=== PATIENT | female | born 1970 | race Hispanic/Latino ===

== ENCOUNTER 2018-02-03 11:10 | Outpatient (CLI) | payer OTHER | END 2018-02-03 11:11 | disposition home or self-care (01) | LOC: BICMAMMO 11:10 | PROVIDERS: ATTEND Family Medicine | DX: Z12.31 Encounter for screening mammogram for malignant neoplasm of breast (principal) | CPT/HCPCS: 77063; 77067 ==

== ENCOUNTER 2018-05-05 14:22 | Emergency (ER) | payer OTHER ==
[2018-05-05 15:07] LABS: Bilirubin Negative (Negative); Blood, Urine Negative (Negative); Glucose, Urine (Dipstick) Negative (Negative); Leukocyte Trace (Negative); Nitrite Negative (Negative); Protein, Urine (Dipstick) Trace mg/dL (Neg-Trace); Urobilinogen 0.2 mg/dL (0.2-1.0)
[2018-05-05 15:17] LABS: Clarity Hazy (Clear)
[2018-05-05 15:18] LABS: Bacteria/HPF 1+ HPF (None Seen); RBC/HPF None Seen HPF (0-3)
[2018-05-05 15:22] LABS: #Basophils 0.1 thou/uL (0.0-0.2); #Neutrophils 9.7 thou/uL (1.40-6.50); %Basophils 0.5 % (0.0-1.0); %Eosinophils 0.1 % (0.0-10.0); %Lymphocytes 21.8 % (21.0-51.0); %Monocytes 7.2 % (0.0-10.0); %Neutrophils 70.4 % (42.0-75.0); BHCG - Serum Negative (NEGATIVE); Hemoglobin 12.1 g/dL (12.0-16.0); Mean Corpuscular HGB CONC 33.1 g/dL (32.0-36.0); Mean Corpuscular Hemoglobin 28.3 pg (27.0-31.0); Mean Corpuscular Volume 85.4 fL (78.0-98.0); Mean Platelet Volume 11.8 fL (7.4-10.4); Platelet Count 208 thou/uL (130-400); Pregs Control Background? CLEAR/WHITE (CLR/WHITE); Pregs Control Bar Appear? YES (CONTROL BAR); RBC Distribution Width 14.6 % (11.5-14.5); Red Blood Cell (RBC) Count 4.27 mill/uL (4.20-5.40); White Blood Cell (WBC) Count 13.8 thou/uL (4.8-10.8)
[2018-05-05 15:32] LABS: ALT (SGPT) 31 U/L (8-55); AST (SGOT) 32 U/L (5-34); Albumin 3.9 g/dL (3.5-5.0); Alkaline Phosphatase 88 U/L (40-150); Anion Gap 12 mmol/L (10-20); BUN (Urea Nitrogen) 9 mg/dL (7.0-18.7); Bilirubin, Total 0.6 mg/dL (0.2-1.2); Calc. Creatinine Clearance 0 mL/min (70-130); Carbon Dioxide 26 mmol/L (22-29); Chloride 103 mmol/L (98-107); Estimated GFR-MDRD 80; Globulin 4.1 g/dL (2.4-3.5); Glucose 85 mg/dL (70-105); Lipase 8 U/L (8-78); Potassium 3.4 mmol/L (3.5-5.1); Sodium 138 mmol/L (136-145)
[2018-05-05] MEDS ORDERED: Morphine 4 MG/ML Carpuject ONE (16:54)
[2018-05-05] MEDS ORDERED: Ondansetron PF 4 MG/2 ML Vial ONE (16:54)
--- NOTE | 2018-05-05 16:55 | CT ---
CT ABDOMEN AND PELVIS WITH IV CONTRAST: 05/05/18 HISTORY: Left lower quadrant abdominal pain. FINDINGS: The lung bases are clear. The liver, spleen, pancreas, adrenal glands and right kidney are normal. Th ere is a small low dense lesion in the left renal cortex likely a cyst. No calcified gallstones are s een. No free air or lymphadenopathy seen in the abdomen or pelvis. There is sigmoid diverticulosis. There is thickening of the wall of the sigmoid colon in the left lower quadrant with adjacent inflammatory changes and a small amount of free fluid in the left lower quadrant and the pelvis. The uterus is pre sent. A normal appearing appendix is noted. There are mild degenerative changes in the spine. No locu lated fluid collection is noted to suggest abscess formation. A small fat containing umbilical hernia is present. IMPRESSION: Sigmoid diverticulitis in the left lower quadrant. No evidence of abscess formation. POS: OFF
== END 2018-05-05 17:30 | disposition home or self-care (01) ==
LOC: SCSER 14:22
DX: K57.32 Diverticulitis of large intestine without perforation or abscess without bleeding (principal)
CPT/HCPCS: 74177; 80053; 81003; 81015; 83690; 84703; 85025; 96361; 96374; 96375; J2270; J2405

== ENCOUNTER 2018-05-15 13:25 | Emergency (ER) | payer OTHER ==
[2018-05-15 13:55] LABS: #Lymphocytes 1.4 thou/uL (1.20-3.40); #Monocytes 0.5 thou/uL (0.11-0.59); #Neutrophils 8.7 thou/uL (1.40-6.50); %Basophils 0.1 % (0.0-1.0); %Eosinophils 0.4 % (0.0-10.0); %Lymphocytes 13.4 % (21.0-51.0); %Monocytes 4.5 % (0.0-10.0); %Neutrophils 81.6 % (42.0-75.0); Mean Corpuscular HGB CONC 31.9 g/dL (32.0-36.0); Mean Corpuscular Hemoglobin 28.3 pg (27.0-31.0); Mean Corpuscular Volume 88.9 fL (78.0-98.0); Mean Platelet Volume 9.1 fL (7.4-10.4); Platelet Count 240 thou/uL (130-400); Red Blood Cell (RBC) Count 4.59 mill/uL (4.20-5.40); White Blood Cell (WBC) Count 10.6 thou/uL (4.8-10.8)
[2018-05-15 14:20] LABS: ALT (SGPT) 38 U/L (8-55); AST (SGOT) 52 U/L (5-34); Albumin 4.1 g/dL (3.5-5.0); Alkaline Phosphatase 90 U/L (40-150); Anion Gap 12 mmol/L (10-20); BUN (Urea Nitrogen) 13 mg/dL (7.0-18.7); Bilirubin, Total 0.4 mg/dL (0.2-1.2); Calc. Creatinine Clearance 0 mL/min (70-130); Calcium 9.1 mg/dL (7.8-10.44); Carbon Dioxide 25 mmol/L (22-29); Chloride 105 mmol/L (98-107); Estimated GFR-MDRD 84; Globulin 4.2 g/dL (2.4-3.5); Glucose 98 mg/dL (70-105); Lipase 15 U/L (8-78); Protein, Total 8.3 g/dL (6.0-8.3); Sodium 138 mmol/L (136-145)
[2018-05-15 15:11] LABS: BHCG - Serum Negative (NEGATIVE); Pregs Control Background? CLEAR/WHITE (CLR/WHITE); Pregs Control Bar Appear? YES (CONTROL BAR)
[2018-05-15 15:58] LABS: Bilirubin Negative (Negative); Blood, Urine Negative (Negative); Clarity CLEAR (Clear); Glucose, Urine (Dipstick) Negative (Negative); Leukocyte Negative (Negative); Nitrite Negative (Negative); Protein, Urine (Dipstick) Trace mg/dL (Neg-Trace); Specific Gravity, Urine 1.023 (1.002-1.036); Urobilinogen 0.2 mg/dL (0.2-1.0); pH, Urine 6.5 (5.0-9.0)
[2018-05-15] MEDS ORDERED: Morphine 4 MG/ML VIAL ONE (16:19)
[2018-05-15] MEDS ORDERED: Promethazine HCl 25 MG/ML VIAL ONE (16:20)
[2018-05-15] MEDS ORDERED: ISOVUE-370 76%-LOCM 1 ML ONE (16:42)
--- NOTE | 2018-05-15 18:13 | CT ---
CT ABDOMEN AND PELVIS WITH CONTRAST 05/15/18 HISTORY: Abdominal pain . COMPARISON: CT 05/05/18. FINDINGS: Lung bases are clear. No pericardial effusion. Liver, spleen, pancreas are unremarkable. Gallbladder is unremarkable. No hydronephrosis. The aortoiliac contour is nonaneurysmal. Interval improvement of sigmoid diverticulitis with minimal stranding remaining. No perforation. No dilated loops of large or small bowel. No retroperitoneal adenopathy. No acute osseous abnormality. IMPRESSION: Marked interval improvement in sigmoid diverticulitis with minimal stranding remaining. POS: KIM
== END 2018-05-15 18:19 | disposition home or self-care (01) ==
LOC: ERS 13:25
DX: K57.32 Diverticulitis of large intestine without perforation or abscess without bleeding (principal)
CPT/HCPCS: 36415; 74177; 80053; 81003; 83690; 84703; 85025; 96365; 96366; 96375; J2270; J2550; Q9966

== ENCOUNTER 2019-03-11 12:37 | Outpatient (CLI) | payer OTHER ==
--- NOTE | 2019-03-11 13:16 | MMO ---
Bilateral MAMMO Bilat Screen [facility]. CLINICAL HISTORY: Patient is 48 years old and is seen for screening. The patient has no family history of breast cancer. The patient has no personal history of cancer. VIEWS: The views performed were: bilateral craniocaudal with tomosynthesis; bilateral mediolateral oblique with tomosynthesis; and bilateral exaggerated craniocaudal. FILMS COMPARED: The present examination has been compared to a prior imaging study performed at [facility] on 02/03/2018. This study has been interpreted with the assistance of computer-aided detection. MAMMOGRAM FINDINGS: There are scattered fibroglandular densities. There are no suspicious masses, suspicious calcifications, or new areas of architectural distortion. IMPRESSION: THERE IS NO MAMMOGRAPHIC EVIDENCE OF MALIGNANCY. A ROUTINE FOLLOW-UP MAMMOGRAM IN 1 YEAR IS RECOMMENDED. THE RESULTS OF THIS EXAM WERE SENT TO THE PATIENT. ACR BI-RADS Category 1 - Negative MAMMOGRAPHY NOTE: 1. A negative mammogram report should not delay a biopsy if a dominant of clinically suspicious mass is present. 2. Approximately 10% to 15% of breast cancers are not detected by mammography. 3. Adenosis and dense breasts may obscure an underlying neoplasm. Reported by: DANUTA BARKER MD Electonically Signed: [id number]
== END 2019-03-11 12:38 | disposition home or self-care (01) ==
LOC: BICMAMMO 12:37
PROVIDERS: ATTEND Family Medicine
DX: Z12.31 Encounter for screening mammogram for malignant neoplasm of breast (principal)
CPT/HCPCS: 77063; 77067

== ENCOUNTER 2019-03-19 19:13 | Emergency (ER) | payer OTHER ==
[2019-03-19 22:37] LABS: #Basophils 0.1 thou/uL (0.0-0.2); #Lymphocytes 2.5 thou/uL (1.20-3.40); #Monocytes 0.5 thou/uL (0.11-0.59); #Neutrophils 6.4 thou/uL (1.40-6.50); %Basophils 0.5 % (0.0-1.0); %Eosinophils 0.4 % (0.0-10.0); %Lymphocytes 26.5 % (21.0-51.0); %Monocytes 5.4 % (0.0-10.0); %Neutrophils 67.1 % (42.0-75.0); Hemoglobin 13.3 g/dL (12.0-16.0); Mean Corpuscular HGB CONC 33.3 g/dL (32.0-36.0); Mean Corpuscular Volume 87.2 fL (78.0-98.0); Mean Platelet Volume 9.2 fL (7.4-10.4); Platelet Count 224 thou/uL (130-400); RBC Distribution Width 13.1 % (11.5-14.5); Red Blood Cell (RBC) Count 4.58 mill/uL (4.20-5.40); White Blood Cell (WBC) Count 9.6 thou/uL (4.8-10.8)
[2019-03-19] MEDS ORDERED: Ondansetron ODT 4 MG TAB ONE (22:52)
[2019-03-19] MEDS ORDERED: Meclizine HCl 25 MG TAB ONE (22:52)
[2019-03-19 22:58] LABS: ALT (SGPT) 17 U/L (8-55); AST (SGOT) 24 U/L (5-34); Albumin 4.4 g/dL (3.5-5.0); Alkaline Phosphatase 104 U/L (40-110); Anion Gap 13 mmol/L (10-20); BUN (Urea Nitrogen) 15 mg/dL (7.0-18.7); Bilirubin, Total 0.4 mg/dL (0.2-1.2); CK (CPK) 96 U/L (29-168); Calc. Creatinine Clearance 0 mL/min (70-130); Calcium 9.3 mg/dL (7.8-10.44); Carbon Dioxide 27 mmol/L (22-29); Chloride 102 mmol/L (98-107); Estimated GFR-MDRD 74; Globulin 4.2 g/dL (2.4-3.5); Glucose 134 mg/dL (70-105); Potassium 3.7 mmol/L (3.5-5.1); Protein, Total 8.6 g/dL (6.0-8.3); Sodium 138 mmol/L (136-145)
== END 2019-03-20 01:20 | disposition home or self-care (01) ==
LOC: ERS 19:13
DX: R42 Dizziness and giddiness (principal); Z79.899 Other long term (current) drug therapy; Z79.891 Long term (current) use of opiate analgesic
CPT/HCPCS: 36415; 80053; 80061; 82550; 84484; 85025; 93005; 94760; 96360; J8597; Q0162

== ENCOUNTER 2019-09-10 10:53 | Outpatient (CLI) | payer OTHER ==
--- NOTE | 2019-09-10 11:24 | ULT ---
EXAM: Left lower extremity venous Doppler HISTORY: Pain and left lower extremity at the level of the east for 2 weeks. FINDINGS: Grayscale, color-flow, Doppler evaluation, spectral analysis of the left lower extremity venous struc tures is performed with 2-D imaging. The left common femoral, superficial femoral, popliteal, posterior tibial, proximal greater saphenous and profunda femoral veins are imaged. There is normal luminal compressibility, flow, and augmentation in the visualized deep venous structu res of the left lower extremity. IMPRESSION: No evidence of a deep vein thrombosis in the visualized deep venous structures left lower extremity.
== END 2019-09-10 10:54 | disposition home or self-care (01) ==
LOC: SCSULT 10:53
PROVIDERS: ATTEND Family Medicine
DX: M79.605 Pain in left leg (principal)

== ENCOUNTER 2020-03-15 16:07 | Emergency (ER) | payer OTHER ==
[2020-03-15 17:44] LABS: #Basophils 0.1 thou/uL (0.0-0.2); #Lymphocytes 1.8 thou/uL (1.20-3.40); #Monocytes 0.6 thou/uL (0.11-0.59); #Neutrophils 7.8 thou/uL (1.40-6.50); %Lymphocytes 17.6 % (21.0-51.0); %Monocytes 6.2 % (0.0-10.0); %Neutrophils 75.2 % (42.0-75.0); Hemoglobin 14.9 g/dL (12.0-16.0); Mean Corpuscular HGB CONC 34.1 g/dL (32.0-36.0); Mean Corpuscular Hemoglobin 30.1 pg (27.0-31.0); Mean Corpuscular Volume 88.1 fL (78.0-98.0); Mean Platelet Volume 9.4 fL (7.4-10.4); Platelet Count 177 thou/uL (130-400); RBC Distribution Width 14.7 % (11.5-14.5); Red Blood Cell (RBC) Count 4.96 mill/uL (4.20-5.40); White Blood Cell (WBC) Count 10.4 thou/uL (4.8-10.8)
[2020-03-15 18:04] LABS: ALT (SGPT) 38 U/L (8-55); AST (SGOT) 44 U/L (5-34); Albumin 4.1 g/dL (3.5-5.0); Alkaline Phosphatase 92 U/L (40-110); Anion Gap 16 mmol/L (10-20); BUN (Urea Nitrogen) 14 mg/dL (7.0-18.7); Bilirubin, Total 0.3 mg/dL (0.2-1.2); Calc. Creatinine Clearance 0 mL/min (70-130); Calcium 9.7 mg/dL (7.8-10.44); Carbon Dioxide 21 mmol/L (22-29); Chloride 101 mmol/L (98-107); Globulin 4.7 g/dL (2.4-3.5); Glucose 104 mg/dL (70-105); Potassium 3.2 mmol/L (3.5-5.1); Protein, Total 8.8 g/dL (6.0-8.3); Sodium 135 mmol/L (136-145)
[2020-03-15 18:12] LABS: BHCG - Serum Negative (NEGATIVE); Pregs Control Background? CLEAR/WHITE (CLR/WHITE); Pregs Control Bar Appear? YES (CONTROL BAR)
--- NOTE | 2020-03-15 19:33 | ULT ---
US Gallbladder RUQ: 03/15/2020 7:23 PM CLINICAL HISTORY: Right upper quadrant abdominal pain and epigastric abdominal pain. STUDY: Limited right upper quadrant ultrasound of abdomen. COMPARISON: CT abdomen/pelvis 05/05/2018 FINDINGS: Liver: Size: Normal. Echogenicity: Hyperechoic consistent with hepatic steatosis. Contour: Smooth. Mass: None. Bile ducts: No intrahepatic or extrahepatic biliary dilatation. Common bile duct measures 2 mm. Gallbladder: Normal. Pancreas: Head, body, and tail appear normal. Right kidney: No pelvicalyceal dilatation. Right kidney measuring 9.7 cm in length. IMPRESSION: Mild fatty infiltration of the liver.
[2020-03-15] MEDS ORDERED: Ketorolac Tromethamine 30 MG/ML VIAL ONE (21:30)
[2020-03-15] MEDS ORDERED: Ondansetron PF 4 MG/2 ML Vial ONE (21:30)
[2020-03-15 21:59] LABS: Bacteria/HPF None Seen HPF (None Seen); Bilirubin 1+ (Negative); Blood, Urine Trace (Negative); Clarity Turbid (Clear); Glucose, Urine (Dipstick) Normal (Negative); Ketone, Urine 20 mg/dL (Negative); Leukocyte Negative Leu/uL (Negative); Nitrite Negative (Negative); Protein, Urine (Dipstick) 100 mg/dL (Neg-Trace); RBC/HPF 0-3 HPF (0-3); Specific Gravity, Urine 1.025 (1.002-1.036); Urobilinogen Normal mg/dL (Less than 2)
--- NOTE | 2020-03-15 23:48 | CT ---
CT Abdomen Pelvis W Con: 03/15/2020 9:28 PM CLINICAL INFORMATION: 3 days of abdominal pain COMPARISON: 05/15/2018 TECHNIQUE: Multiple contiguous axial images were obtained and a CT of the abdomen and pelvis with IV contrast. C oronal and sagittal reformats were performed. FINDINGS: Lower Chest: within normal limits. Abdomen: Liver: Diffuse fatty infiltration. Bile Ducts: Normal caliber. Gallbladder: No calcified gallstones. Normal caliber wall. Pancreas: within normal limits. Spleen: within normal limits. Adrenals: within normal limits. Kidneys: within normal limits. Pelvis: Reproductive Organs: No pelvic masses. Ureters: within normal limits. Bladder: within normal limits. Peritoneum: No ascites or free air, no fluid collection. Bowel: Normal caliber. Stranding changes seen surrounding the right colon and transverse colon with t hickening of the wall consistent with colitis. Diverticula are seen in the sigmoid colon but this is not involved with the inflammatory change. Normal appendix. Mesentery and Retroperitoneum: There are enlarged ileocolic lymph nodes measuring up to 1.4 cm in siz e. These were not enlarged on the prior CT. No retroperitoneal or pelvic adenopathy is seen. Vessels: Normal. Abdominal Wall: within normal limits. Bones: Within normal limits IMPRESSION: 1. Colitis of the right and transverse colon. This could be secondary to infectious, inflammatory, or ischemic colitis. 2. Fatty liver 3. Diverticulosis in the left colon.
== END 2020-03-16 00:19 | disposition home or self-care (01) ==
LOC: ERS 16:07
DX: K52.9 Noninfective gastroenteritis and colitis, unspecified (principal)
CPT/HCPCS: 36415; 74177; 76705; 80053; 81003; 81015; 83605; 83690; 84703; 85025; 93005; 96374; 96375; J1885; J2405

== ENCOUNTER 2020-03-31 22:07 | Emergency (ER) | payer OTHER ==
[2020-03-31] MEDS ORDERED: Fluorescein Opthalmic Strip ONE ×2 (23:03→23:55)
[2020-03-31] MEDS ORDERED: Proparacaine 0.5% Opth 15 ML BOT ONE (23:03)
== END 2020-03-31 23:58 | disposition home or self-care (01) ==
LOC: ERS 22:07
DX: T15.81XA Foreign body in other and multiple parts of external eye, right eye, initial encounter (principal); Z79.899 Other long term (current) drug therapy
CPT/HCPCS: 99283

== ENCOUNTER 2020-06-06 08:00 | Outpatient (CLI) | payer OTHER | END 2020-06-06 08:01 | disposition home or self-care (01) | LOC: BICMAMMO 08:00 | PROVIDERS: ATTEND Family Medicine | DX: Z12.31 Encounter for screening mammogram for malignant neoplasm of breast (principal); N63.20 Unspecified lump in the left breast, unspecified quadrant | CPT/HCPCS: 77063; 77067 ==

== ENCOUNTER 2020-06-08 13:26 | Outpatient (CLI) | payer OTHER | END 2020-06-08 13:27 | disposition home or self-care (01) | LOC: BICMAMMO 13:26 | PROVIDERS: ATTEND Family Medicine | DX: N63.20 Unspecified lump in the left breast, unspecified quadrant (principal) | CPT/HCPCS: G0279 ==

== ENCOUNTER 2020-11-06 06:00 | Observation (INO) | payer OTHER ==
[2020-11-06] MEDS ORDERED: Aspirin Chewable 81 MG TAB ONE (06:45)
[2020-11-06] MEDS ORDERED: Nitroglycerin 0.4 MG TAB 1 EACH ONE (06:45)
[2020-11-06 07:17] LABS: #Basophils 0.1 thou/uL (0.0-0.2); #Eosinphils 0.1 thou/uL (0.0-0.7); #Lymphocytes 3.4 thou/uL (1.20-3.40); #Monocytes 0.6 thou/uL (0.11-0.59); %Basophils 1.3 % (0.0-1.0); %Eosinophils 0.9 % (0.0-10.0); %Lymphocytes 41.9 % (21.0-51.0); %Monocytes 7.3 % (0.0-10.0); %Neutrophils 48.7 % (42.0-75.0); Hemoglobin 13.3 g/dL (12.0-16.0); Mean Corpuscular HGB CONC 34.4 g/dL (32.0-36.0); Mean Corpuscular Volume 89.9 fL (78.0-98.0); Mean Platelet Volume 9.8 fL (7.4-10.4); Platelet Count 196 thou/uL (130-400); RBC Distribution Width 13.6 % (11.5-14.5); Red Blood Cell (RBC) Count 4.28 mill/uL (4.20-5.40); White Blood Cell (WBC) Count 8.2 thou/uL (4.8-10.8)
[2020-11-06 09:09] LABS: Albumin 3.6 g/dL (3.5-5.0)
[2020-11-06 09:10] LABS: Chloride 106 mmol/L (98-107); Potassium 3.5 mmol/L (3.5-5.1); Sodium 138 mmol/L (136-145)
[2020-11-06 09:11] LABS: Calcium 8.7 mg/dL (7.8-10.44); Glucose 102 mg/dL (70-105)
[2020-11-06 09:12] LABS: Globulin 3.7 g/dL (2.4-3.5); Protein, Total 7.3 g/dL (6.0-8.3)
[2020-11-06 09:13] LABS: Anion Gap 13 mmol/L (10-20); Bilirubin, Total 0.5 mg/dL (0.2-1.2); Carbon Dioxide 23 mmol/L (22-29)
[2020-11-06 09:14] LABS: Alkaline Phosphatase 110 U/L (40-110)
[2020-11-06 09:15] LABS: Calc. Creatinine Clearance 0 mL/min (70-130)
[2020-11-06 09:16] LABS: BUN (Urea Nitrogen) 13 mg/dL (7.0-18.7)
[2020-11-06 09:17] LABS: ALT (SGPT) 31 U/L (8-55); AST (SGOT) 37 U/L (5-34)
[2020-11-06 09:18] LABS: CK (CPK) 93 U/L (29-168); Lipase 15 U/L (8-78)
[2020-11-06] MEDS ORDERED: Iopamidol-370 76% 500 ML 1 ML ONE (09:39)
[2020-11-06] MEDS ORDERED: Nitroglycerin 2% Ointment 1 INCH/1 GM Packet ONE (09:43)
[2020-11-06] MEDS ORDERED: Acetaminophen 500 MG TAB ONE (09:48)
[2020-11-06 10:47] LABS: Troponin I Less than 0.010 ng/mL (< 0.028)
[2020-11-06] MEDS ORDERED: Ondansetron ODT 4 MG TAB PO PRN (11:01)
[2020-11-06] MEDS ORDERED: hydrALAZINE 25 MG TAB PO PRN (11:03)
[2020-11-06] MEDS: Acetaminophen 325 MG TAB PO PRN ×2 (12:25→18:07)
[2020-11-06 12:55] LABS: Troponin I Less than 0.010 ng/mL (< 0.028)
[2020-11-06 12:58] VITALS: BMI 38.9
[2020-11-06] MEDS ORDERED: Nitroglycerin 2% Ointment 1 INCH/1 GM Packet TOP SCH (14:00)
[2020-11-06] MEDS ORDERED: Fioricet 325/50/40 mg Tablet PO PRN (18:22)
[2020-11-06 21:46] LABS: SARS-CoV-2 PCR by NAA Not Detected (NotDetected)
[2020-11-06] MEDS: Famotidine 20 MG TAB PO SCH (22:13)
[2020-11-07 04:51] LABS: #Basophils 0.1 thou/uL (0.0-0.2); #Eosinphils 0.1 thou/uL (0.0-0.7); #Lymphocytes 3.3 thou/uL (1.20-3.40); #Monocytes 0.7 thou/uL (0.11-0.59); #Neutrophils 3.7 thou/uL (1.40-6.50); %Basophils 0.7 % (0.0-1.0); %Eosinophils 1.2 % (0.0-10.0); %Lymphocytes 42.2 % (21.0-51.0); %Monocytes 8.3 % (0.0-10.0); %Neutrophils 47.6 % (42.0-75.0); Hemoglobin 13.2 g/dL (12.0-16.0); Mean Corpuscular HGB CONC 32.5 g/dL (32.0-36.0); Mean Corpuscular Hemoglobin 29.2 pg (27.0-31.0); Mean Corpuscular Volume 89.9 fL (78.0-98.0); Mean Platelet Volume 9.5 fL (7.4-10.4); Platelet Count 215 thou/uL (130-400); RBC Distribution Width 13.4 % (11.5-14.5); Red Blood Cell (RBC) Count 4.53 mill/uL (4.20-5.40); White Blood Cell (WBC) Count 7.8 thou/uL (4.8-10.8)
[2020-11-07 05:17] LABS: Anion Gap 11 mmol/L (10-20); BUN (Urea Nitrogen) 13 mg/dL (7.0-18.7); Calc. Creatinine Clearance 133 mL/min (70-130); Carbon Dioxide 24 mmol/L (22-29); Chloride 106 mmol/L (98-107); Glucose 116 mg/dL (70-105); Potassium 3.7 mmol/L (3.5-5.1); Sodium 137 mmol/L (136-145)
[2020-11-07] MEDS ORDERED: Nitroglycerin 0.4 MG TAB (25 Tab Bottle) ONE (06:27)
[2020-11-07] MEDS: Acetaminophen 325 MG TAB PO PRN (06:35)
[2020-11-07] MEDS ORDERED: Nitroglycerin 0.4 MG TAB (25 Tab Bottle) SL PRN (06:55)
[2020-11-07] MEDS: Famotidine 20 MG TAB PO SCH ×2 (08:19→20:40)
[2020-11-07] MEDS: Lisinopril 10 MG TAB PO SCH (08:19)
[2020-11-07] MEDS: Hydroxychloroquine Sulfate 200 MG TAB PO SCH (08:19)
[2020-11-07] MEDS: Folic Acid 1 MG TAB PO SCH (08:19)
[2020-11-07] MEDS: Estradiol 1 MG TAB PO SCH (08:19)
[2020-11-07] MEDS: Enoxaparin Sodium 40 MG/0.4 ML SYRINGE SC SCH (08:20)
[2020-11-07 08:59] LABS: Cardiac Risk 4.9 (Less than 4.5); Complement-C4 24.6 mg/dL (15-57)
[2020-11-07] MEDS ORDERED: Hydroxychloroquine Sulfate 200 MG TAB PO SCH (17:00)
[2020-11-08] MEDS: Lisinopril 10 MG TAB PO SCH (08:31)
[2020-11-08] MEDS: Hydroxychloroquine Sulfate 200 MG TAB PO SCH (08:31)
[2020-11-08] MEDS: Folic Acid 1 MG TAB PO SCH (08:32)
[2020-11-08] MEDS: Estradiol 1 MG TAB PO SCH (08:32)
[2020-11-08] MEDS: Famotidine 20 MG TAB PO SCH (08:32)
[2020-11-08] MEDS: Enoxaparin Sodium 40 MG/0.4 ML SYRINGE SC SCH (08:32)
[2020-11-08] MEDS: Acetaminophen 325 MG TAB PO PRN (08:32)
[2020-11-08 10:21] VITALS: BP 136/84; TEMP 97.4
[2020-11-09 12:44] LABS: dsDNA IgG Antibody Less than 0.5 IU/mL (<10 Negative)
== END 2020-11-08 11:17 | disposition home or self-care (01) ==
LOC: ERS 06:00 → 2NO 11:01
PROVIDERS: ADMIT Internal Medicine; ATTEND Internal Medicine
DX: R07.89 Other chest pain (principal); M32.9 Systemic lupus erythematosus, unspecified; I10 Essential (primary) hypertension; Z79.899 Other long term (current) drug therapy; Z91.041 Radiographic dye allergy status; Z20.822 Contact with and (suspected) exposure to COVID-19
CPT/HCPCS: 36415; 71045; 71275; 80048; 80053; 80061; 82550; 83690; 83880; 84484; 85025; 86160; 86225; 93005; 93306; 94760; 96372; G0378; J1650; Q9967; U0003; U0005

== ENCOUNTER 2021-07-27 15:56 | Outpatient (CLI) | payer BC | END 2021-07-27 15:57 | disposition home or self-care (01) | LOC: BICULT 15:56 | PROVIDERS: ATTEND Family Medicine | DX: N95.9 Unspecified menopausal and perimenopausal disorder (principal); R93.89 Abnormal findings on diagnostic imaging of other specified body structures | CPT/HCPCS: 76856 ==

== ENCOUNTER 2021-07-27 17:30 | Emergency (ER) | payer BC ==
[2021-07-27] MEDS ORDERED: Ketorolac Tromethamine 30 MG/ML VIAL ONE (19:02)
== END 2021-07-27 19:06 | disposition home or self-care (01) ==
LOC: ERS 17:30
DX: M79.631 Pain in right forearm (principal); M25.511 Pain in right shoulder; M25.431 Effusion, right wrist; W10.9XXA Fall (on) (from) unspecified stairs and steps, initial encounter
CPT/HCPCS: 96372; J1885

== ENCOUNTER 2021-09-14 15:13 | Outpatient (CLI) | payer BC | END 2021-09-14 15:14 | disposition home or self-care (01) | LOC: LABBT 15:13 | PROVIDERS: ATTEND Surgery | DX: Z20.822 Contact with and (suspected) exposure to COVID-19 (principal) | CPT/HCPCS: U0003; U0005 ==

== ENCOUNTER 2021-09-19 14:39 | Outpatient (CLI) | payer BC | END 2021-09-19 14:40 | disposition home or self-care (01) | LOC: RAD 14:39 | PROVIDERS: ATTEND Surgery | DX: K21.9 Gastro-esophageal reflux disease without esophagitis (principal); K22.89 Other specified disease of esophagus | CPT/HCPCS: 74220 ==

== ENCOUNTER 2021-11-29 15:30 | Inpatient (IN) | payer BC ==
[2021-11-30 11:48] VITALS: BMI 42.2
[2021-12-05] MEDS ORDERED: SUGAMMADEX SODIUM 200 MG/2 ML VIAL ONE (10:19)
[2021-12-05] MEDS ORDERED: HYDROmorphone 0.5 MG/0.5 ML SYRINGE ONE (10:19)
[2021-12-05] MEDS ORDERED: fentaNYL Citrate/PF 100 MCG/2 ML SYRINGE ONE (10:19)
[2021-12-05] MEDS ORDERED: Sodium Chloride 0.9% 100 ML ONE (10:37)
[2021-12-05] MEDS ORDERED: Acetaminophen 325 MG TAB ONE (10:37)
[2021-12-05] MEDS ORDERED: Heparin 5,000 UNITS/ML VIAL ONE (10:37)
[2021-12-05] MEDS ORDERED: CEFAZOLIN 2 GM VIAL ONE (10:37)
[2021-12-05] MEDS ORDERED: Bupivacaine/Epinephrine 0.25% 30 ML VIAL ONE (10:48)
[2021-12-05] MEDS ORDERED: Midazolam HCl 2 mg/2 ml Vial ONE (11:57)
[2021-12-05] MEDS ORDERED: Ketorolac Tromethamine 30 MG/ML VIAL ONE (12:03)
[2021-12-05] MEDS ORDERED: Esmolol 100 MG/10 ML VIAL ONE (12:03)
[2021-12-05] MEDS ORDERED: Ondansetron PF 4 MG/2 ML Vial ONE (12:03)
[2021-12-05] MEDS ORDERED: Metoprolol Tartrate 5 MG/5 ML VIAL ONE (12:03)
[2021-12-05] MEDS ORDERED: Dexamethasone 20 MG/5 ML VIAL ONE (12:03)
[2021-12-05] MEDS ORDERED: Rocuronium Bromide 10 MG/ML (10ML VIAL) ONE (12:03)
[2021-12-05] MEDS ORDERED: PROPOFOL 200 MG/20 ML VIAL ONE (12:03)
[2021-12-05] MEDS ORDERED: Lidocaine 1% MPF 2 ML VIAL ONE (12:03)
[2021-12-05] MEDS ORDERED: hydrALAZINE 20 MG/ML VIAL SLOW IVP PRN (13:25)
[2021-12-05] MEDS ORDERED: Dextrose 50% Abboject 50 ML SYRINGE SLOW IVP PRN (13:25)
[2021-12-05] MEDS ORDERED: Promethazine HCl 25 MG/ML VIAL IM PRN ×3 (13:25→14:08)
[2021-12-05] MEDS ORDERED: Dextrose 5% in Water 1,000 ML IV PRN (13:25)
[2021-12-05] MEDS ORDERED: hydrALAZINE 20 MG/ML VIAL ONE (13:25)
[2021-12-05] MEDS ORDERED: diphenhydrAMINE 50 MG/ML VIAL IVP PRN ×2 (13:25→14:08)
[2021-12-05] MEDS ORDERED: Hydrocodone-Acetamin 15 ML UDCUP PO PRN (13:25)
[2021-12-05] MEDS ORDERED: Ondansetron PF 4 MG/2 ML Vial IVP PRN ×2 (13:25→14:08)
[2021-12-05] MEDS ORDERED: Promethazine HCl 25 MG/ML VIAL IVPB PRN (13:29)
[2021-12-05] MEDS ORDERED: Ondansetron HCl/PF 4 MG/2 ML Vial IVP PRN (13:29)
[2021-12-05] MEDS ORDERED: HYDROmorphone 2 MG/ML VIAL SLOW IVP PRN (13:29)
[2021-12-05] MEDS ORDERED: hydrALAZINE 20 MG/ML VIAL SLOW IVP SCH (13:30)
[2021-12-05] MEDS ORDERED: Fentanyl 100 MCG/2 ML VIAL ONE ×3 (13:35→15:30)
[2021-12-05] MEDS ORDERED: Promethazine HCl 25 MG/ML VIAL ONE (13:36)
[2021-12-05] MEDS ORDERED: D5 1/2 NS w/20 mEq KCL 1,000 ML ONE (13:43)
[2021-12-05] MEDS ORDERED: diphenhydrAMINE 25 MG CAP PO PRN (14:08)
[2021-12-05] MEDS ORDERED: fentaNYL Citrate/PF 2,000 MCG in Sodium Chloride 0.9% 60 ML IV PRN (14:08)
[2021-12-05] MEDS ORDERED: diphenhydrAMINE 50 MG/ML VIAL IM PRN (14:08)
[2021-12-05] MEDS ORDERED: Naloxone HCl 0.4 mg/ml Vial IV PRN (14:08)
[2021-12-05] MEDS ORDERED: Zolpidem Tartrate 5 MG TAB PO PRN (14:08)
[2021-12-05] MEDS ORDERED: Communication Order-Pharmacy FS SCH (14:15)
[2021-12-05] MEDS: D5 1/2 NS w/20 mEq KCL 1,000 ML IV SCH (16:21)
[2021-12-05] MEDS: Hydroxychloroquine Sulfate 200 MG TAB PO SCH (20:05)
[2021-12-05] MEDS ORDERED: Enoxaparin Sodium 40 MG/0.4 ML SYRINGE SC SCH (21:00)
[2021-12-06] MEDS ORDERED: Hydrocodone-Acetamin 15 ML UDCUP PO PRN (05:30)
[2021-12-06 06:03] LABS: #Lymphocytes 1.7 thou/uL (1.20-3.40); #Monocytes 0.7 thou/uL (0.11-0.59); #Neutrophils 9.8 thou/uL (1.40-6.50); %Basophils 0.2 % (0.0-1.0); %Lymphocytes 13.6 % (21.0-51.0); %Monocytes 5.5 % (0.0-10.0); %Neutrophils 80.7 % (42.0-75.0); Hemoglobin 13.6 g/dL (12.0-16.0); Mean Corpuscular HGB CONC 33.2 g/dL (32.0-36.0); Mean Corpuscular Hemoglobin 30.1 pg (27.0-31.0); Mean Corpuscular Volume 90.6 fL (78.0-98.0); Mean Platelet Volume 9.4 fL (7.4-10.4); Platelet Count 225 thou/uL (130-400); RBC Distribution Width 13.4 % (11.5-14.5); Red Blood Cell (RBC) Count 4.53 mill/uL (4.20-5.40); White Blood Cell (WBC) Count 12.2 thou/uL (4.8-10.8)
[2021-12-06 06:23] LABS: Anion Gap 11 mmol/L (10-20); BUN (Urea Nitrogen) 6 mg/dL (7.0-18.7); Calc. Creatinine Clearance 141 mL/min (70-130); Calcium 9.1 mg/dL (7.8-10.44); Carbon Dioxide 23 mmol/L (22-29); Chloride 107 mmol/L (98-107); Estimated GFR 90; Glucose 136 mg/dL (70-105); Potassium 4.1 mmol/L (3.5-5.1); Sodium 137 mmol/L (136-145)
[2021-12-06 06:36] VITALS: TEMP 98.6
[2021-12-06] MEDS: D5 1/2 NS w/20 mEq KCL 1,000 ML IV SCH ×2 (07:33)
[2021-12-06 08:12] VITALS: BP 139/82
[2021-12-06] MEDS ORDERED: Losartan 25 MG TAB PO SCH (09:00)
[2021-12-06] MEDS ORDERED: Pantoprazole 40 MG VIAL IVP SCH (09:00)
[2021-12-06] MEDS: Hydroxychloroquine Sulfate 200 MG TAB PO SCH (09:02)
== END 2021-12-06 11:45 | disposition home or self-care (01) | DRG 621 ==
LOC: SURG A 12-05 10:03
PROVIDERS: ADMIT Surgery; ATTEND Surgery
PROC: 0DB64Z3 Excision of Stomach, Percutaneous Endoscopic Approach, Vertical (ICD-10-PCS; principal; 2021-12-05)
PROC: 8E0W4CZ Robotic Assisted Procedure of Trunk Region, Percutaneous Endoscopic Approach (ICD-10-PCS; 2021-12-05)
DX: E66.01 Morbid (severe) obesity due to excess calories (principal); I10 Essential (primary) hypertension; M32.9 Systemic lupus erythematosus, unspecified; Z68.41 Body mass index [BMI] 40.0-44.9, adult; Z79.899 Other long term (current) drug therapy; Z83.3 Family history of diabetes mellitus; Z83.2 Family history of diseases of the blood and blood-forming organs and certain disorders involving the immune mechanism; Z82.49 Family history of ischemic heart disease and other diseases of the circulatory system; Z91.013 Allergy to seafood
CPT/HCPCS: 36415; 80048; 85025; 88307; 88342; 94760; C9113; J0360; J0690; J1100; J1170; J1644; J1650; J1885; J2250; J2405; J2550; J2704; J3010; J3480; J3490

== ENCOUNTER 2021-11-29 15:40 | Outpatient (CLI) | payer BC ==
[2021-11-29 17:59] LABS: #Eosinphils 0.1 10x3/uL (0.0-0.5); #Monocytes 0.7 10x3/uL (0.0-1.1); %Basophils 0.2 % (0.0-2.0); %Eosinophils 0.9 % (0.0-6.0); %Lymphocytes 36.8 % (18.0-47.0); %Monocytes 7.3 % (0.0-10.0); %Neutrophils 54.6 % (40.0-75.0); Mean Corpuscular HGB CONC 32.2 g/dL (32.0-36.0); Mean Corpuscular Hemoglobin 28.5 pg (27.0-33.0); Mean Corpuscular Volume 88.6 fl (81.6-98.3); Mean Platelet Volume 11.7 fl (7.4-10.4); Platelet Count 248 10x3/uL (150-450); RBC Distribution Width 15.3 % (11.5-14.5); Red Blood Cell (RBC) Count 4.56 10x6/uL (3.90-5.03); White Blood Cell (WBC) Count 9.2 10x3/uL (3.5-10.5)
[2021-11-29 18:13] LABS: ALT (SGPT) 52 U/L (8-55); AST (SGOT) 54 U/L (5-34); Albumin 3.9 g/dL (3.5-5.0); Alkaline Phosphatase 82 U/L (40-110); Anion Gap 13 mmol/L (10-20); BUN (Urea Nitrogen) 17 mg/dL (7.0-18.7); Bilirubin, Total 0.3 mg/dL (0.2-1.2); Calc. Creatinine Clearance 0 mL/min (70-130); Calcium 8.9 mg/dL (7.8-10.44); Carbon Dioxide 26 mmol/L (22-29); Chloride 105 mmol/L (98-107); Estimated GFR 100; Globulin 2.7 g/dL (2.4-3.5); Glucose 77 mg/dL (70-105); Potassium 4.2 mmol/L (3.5-5.1); Protein, Total 6.6 g/dL (6.0-8.3); Sodium 140 mmol/L (136-145)
[2021-11-29 22:54] LABS: Hemoglobin A1c 5.9 % (4.0-6.0)
== END 2021-11-29 15:41 | disposition home or self-care (01) ==
LOC: LABBT 15:40
PROVIDERS: ATTEND Surgery
DX: Z01.818 Encounter for other preprocedural examination (principal); E66.01 Morbid (severe) obesity due to excess calories; Z20.822 Contact with and (suspected) exposure to COVID-19
CPT/HCPCS: 71046; 80053; 83036; 85025; 87811; 93005; 93010

== ENCOUNTER 2023-01-06 14:17 | Outpatient (CLI) | payer BC | END 2023-01-06 14:18 | disposition home or self-care (01) | LOC: BICMRI 14:17 | PROVIDERS: ATTEND Orthopaedic Surgery | DX: M25.561 Pain in right knee (principal); M94.8X6 Other specified disorders of cartilage, lower leg ==

== ENCOUNTER 2023-02-25 14:39 | Outpatient (CLI) | payer BC | END 2023-02-25 14:40 | disposition home or self-care (01) | LOC: RAD 14:39 | PROVIDERS: ATTEND Family Medicine | DX: M79.604 Pain in right leg (principal) ==

== ENCOUNTER 2023-05-07 15:01 | Outpatient (CLI) | payer BC | END 2023-05-07 15:02 | disposition home or self-care (01) | LOC: SCSMRI 15:01 | PROVIDERS: ATTEND Surgery | DX: M47.26 Other spondylosis with radiculopathy, lumbar region (principal); M47.817 Spondylosis without myelopathy or radiculopathy, lumbosacral region; M48.061 Spinal stenosis, lumbar region without neurogenic claudication; M48.07 Spinal stenosis, lumbosacral region | CPT/HCPCS: 72110; 72148 ==

== ENCOUNTER 2023-09-23 14:58 | Outpatient (CLI) | payer BC | END 2023-09-23 14:59 | disposition home or self-care (01) | LOC: BICMAMMO 14:58 | PROVIDERS: ATTEND Family Medicine | DX: Z12.31 Encounter for screening mammogram for malignant neoplasm of breast (principal) | CPT/HCPCS: 77063; 77067 ==

== ENCOUNTER 2024-12-02 15:13 | Outpatient (CLI) | payer BC | END 2024-12-02 15:14 | disposition home or self-care (01) | LOC: BICMAMMO 15:13 | PROVIDERS: ATTEND Family Medicine | DX: Z12.31 Encounter for screening mammogram for malignant neoplasm of breast (principal) | CPT/HCPCS: 77063; 77067 ==